=== PATIENT | male | born 1945 | race Caucasian/White ===

== ENCOUNTER 2017-11-14 07:19 | Emergency (ER) | payer MEDICARE ==
[~2017-11-14] VITALS: Ht 175.3 cm; Wt 80.0 kg
[~2017-11-14 07:19] MED LIST: AMLO10 PO; ASPI81 PO; ATEN-100 PO; FISH1000 PO; IBUP-232 PO; LORT5TAB PO; ROSU10 PO
[2017-11-14 07:30] VITALS: BP 189/90; PULSE 62; RESP 16; TEMP 97.5; O2SAT 97
[2017-11-14] MEDS ORDERED: OMEGCAP PO (07:42)
[2017-11-14] MEDS ORDERED: CLOP75TA PO (07:42)
[2017-11-14] MEDS ORDERED: CENTCHW4 CHEW (07:42)
[2017-11-14] MEDS ORDERED: LOSA100T PO (07:42)
[2017-11-14] MEDS ORDERED: ASPI-516 CHEW (07:42)
[2017-11-14] MEDS ORDERED: COQ-100C5 PO (07:42)
[2017-11-14] MEDS ORDERED: VITA150T PO (07:42)
[2017-11-14] MEDS ORDERED: VITA2000 PO (07:42)
[2017-11-14] MEDS ORDERED: ATOR40TA16 PO (07:42)
[2017-11-14] MEDS ORDERED: METO25TA3 PO (07:42)
--- NOTE | 2017-11-14 07:56 | PD ---
HPI Chief Complaint: Injury Time Seen by Provider: 07:46 Travel History International Travel<30 days: No Contact w/Intl Traveler<30days: No Traveled to known affect area: No History of Present Illness HPI 72-year-old male here for evaluation of left shoulder pain. The patient reports that he fell off of a 2 step ladder 2 days ago and landed onto his left shoulder. He did not start having pain until yesterday. Pain is over his left lateral shoulder and is moderate, worse with movements, worse when he extends his arm to 90. He denies head injury or LOC. No head neck or back pain. No pain in any other joint or extremity. No paresthesias. PFSH Past Medical History Cardiovascular Problems: Yes ([place], STENTS X 4) High Cholesterol: Yes Hypertension: Yes Past Surgical History Coronary Stent: Yes (2003) Social History Alcohol Use: Yes ([facility]) Tobacco Use: No Substance Use: No Allergies-Medications (Allergen,Severity, Reaction): Coded Allergies: ofloxacin (Unverified Allergy, Severe, UNKNOWN, 11/14/17) Reported Meds & Prescriptions Reported Meds & Active Scripts Active Reported Centrum (Multiple Vitamins W/ Minerals) 1 Chew 1 Tab CHEW DAILY Super B Complex (Vitamin B Complex Vit C No.4) 150 Mg Tablet 1 Tab PO DAILY [place]-3 Fish Oil/Vitamin (Fish Oil-Cholecalciferol) 1,000-1,000 Mg Cap 1 Cap PO DAILY Coq-10 Tr (Coenzyme Q10 (Ubidecarenone)) 100 Mg Cap 1 Tab PO DAILY Vitamin D3 (Cholecalciferol) 2,000 Unit Cap 2,000 Units PO DAILY Aspirin 81 Mg Chew 81 Mg CHEW DAILY Losartan (Losartan Potassium) 100 Mg Tab 100 Mg PO DAILY Clopidogrel (Clopidogrel Bisulfate) 75 Mg Tab 75 Mg PO DAILY Metoprolol Tartrate 25 Mg Tab 25 Mg PO BID Atorvastatin (Atorvastatin Calcium) 40 Mg Tab 40 Mg PO HS Review of Systems Except as stated in HPI: all other systems reviewed are Neg Physical Exam Narrative GENERAL: Well-developed, well-nourished, comfortable, no apparent distress. SKIN: Focused skin assessment warm/dry. No lacerations, abrasions, or ecchymosis. HEAD: Atraumatic. Normocephalic. EYES: Pupils equal and round. No scleral icterus. No injection or drainage. ENT: No nasal bleeding or discharge. Mucous membranes pink and moist. NECK: Trachea midline. No JVD. No midline several spine step-off or tenderness. CARDIOVASCULAR: Regular rate and rhythm. Bilateral distal radial pulses are brisk and equal. RESPIRATORY: No accessory muscle use. Clear to auscultation. Breath sounds equal bilaterally. GASTROINTESTINAL: Abdomen soft, non-tender, nondistended. Hepatic and splenic margins not palpable. MUSCULOSKELETAL: Left lateral shoulder with mild swelling with mild lateral tenderness without obvious deformity, with range of motion limited to 90 of extension. The rest of his joints and extremities are without deformity, without tenderness, with normal range of motion. Bilateral clavicles are nontender without step-off. No midline vertebral step-off or tenderness. NEUROLOGICAL: Awake and alert. No obvious cranial nerve deficits. Motor grossly within normal limits. Normal speech. PSYCHIATRIC: Appropriate mood and affect; insight and judgment normal. Data Data Last Documented VS Vital Signs Date Time Temp Pulse Resp B/P (MAP) Pulse Ox O2 Delivery O2 Flow Rate FiO2 11/14/17 07:30 97.5 62 16 189/90 (123) 97 Orders Orders Shoulder, Complete (>2vws) (11/14/17 ) [facility] Medical Decision Making Medical Screen Exam Complete: Yes Emergency Medical Condition: Yes Differential Diagnosis Left shoulder fracture versus contusion versus rotator cuff injury Narrative Course Left shoulder x-ray: CONCLUSION: No evidence of fracture or dislocation. Probable calcific tendinosis. Patient was made aware of x-ray findings and provided a copy of the report. He has been taking Tylenol for the pain and is requesting something stronger for night to help him with sleep. I'll give him a perception for tramadol. He is also encouraged to take ibuprofen. He will be given the name of the orthopedist director of education with him to follow up with this week for further evaluation. He was advised on when to return to the emergency department. He verbalizes understanding and agreement with plan. Diagnosis Primary Impression: Injury of left shoulder Qualified Codes: S49.92XA - Unspecified injury of left shoulder and upper arm , initial encounter Referrals: Rosalino Hodge MD 1 week Orthopedic Primary Care Physician 3 days Additional Instructions: Follow-up with a primary care physician this week. Follow-up with orthopedist Dr. Hodge or an orthopedist of your choice this week. Return to the emergency department for worsening symptoms or any other concerns. Scripts Tramadol (Tramadol) 50 Mg Tab 50 MG PO Q6H Y for PAIN, #15 TAB 0 Refills Prov: Cecilio Herrera MD 11/14/17 Disposition: 01 DISCHARGE HOME Condition: Stable Cecilio Herrera MD Nov 14, 2017 07:56
--- NOTE | 2017-11-14 09:10 | RADRPT ---
EXAM DATE/TIME: 11/14/2017 08:05 [facility] COMPARISON: No previous studies available for comparison. INDICATIONS : Left Shoulder pain MEDICAL HISTORY : None. SURGICAL HISTORY : None. ENCOUNTER: Initial ACUITY: 1 day PAIN SCORE: 9/10 LOCATION: Left upper extremity FINDINGS: Multiple views of the left shoulder demonstrate diffuse osteopenia. No evidence of fracture or dislo cation. Several oval amorphous densities adjacent to the greater tuberosity suggests calcific tendin osis. There is normal alignment of the humeral head and glenoid. CONCLUSION: No evidence of fracture or dislocation. Probable calcific tendinosis. Jacoby Horan MD on November 14, 2017 at 9:08 Board Certified Radiologist. This report was verified electronically.
[2017-11-14] MEDS ORDERED: TRAM50TA PO (09:19)
== END 2017-11-14 09:38 | disposition home or self-care (01) ==
LOC: PHED 07:19
DX: S49.92XA Unspecified injury of left shoulder and upper arm, initial encounter (principal); W11.XXXA Fall on and from ladder, initial encounter; E78.00 Pure hypercholesterolemia, unspecified; I10 Essential (primary) hypertension; I25.2 Old myocardial infarction; Z95.5 Presence of coronary angioplasty implant and graft
CPT/HCPCS: 73030; 99283

== ENCOUNTER 2018-07-26 17:58 | Inpatient (IN) ==
[~2018-07-26 17:58] MED LIST changes: -AMLO10 PO; -ASPI81 PO; -ATEN-100 PO; -FISH1000 PO; -IBUP-232 PO; +Iohexol 350 MG/ML 100 ML Vial (for Cath Lab) IVCONTRAST ONE; +Iohexol 350 MG/ML 50 ML Vial (for Cath Lab) IVCONTRAST ONE; -LORT5TAB PO; -ROSU10 PO
[2018-07-26] MEDS ORDERED: Nitroglycerin Drip Premix 50 MG/250 ML BOTTLE ONE (18:07)
[2018-07-26] MEDS ORDERED: Heparin 10,000 UNITS/10 ML Vial (for IV use) ONE (18:07)
[2018-07-26] MEDS ORDERED: Heparin 10,000 UNITS/10 ML Vial (for IV use) IV.PUSH STA (18:08)
[2018-07-26] MEDS ORDERED: Sod Chloride 0.9% Inj 1,000 ML IV.SIG SCH (18:15)
[2018-07-26] MEDS: Metoprolol Inj 5 MG/5 ML Vial IV.PUSH SCH ×2 (18:20→18:58)
--- NOTE | 2018-07-26 18:27 | ED ---
HPI General Stated Complaint: Chest Pain Time Seen by Provider: 07/26/18 18:08 History of Present Illness HPI narrative: This is a 72-year-old male with history of hypertension, hyperlipidemia, who presents today with 15 minutes of chest pain. Patient states he was working in his yard lifting heavy rock bags when he started experiencing substernal chest pain. He reports it is substernal radiating to his left upper shoulder blade. There is associated nausea and diaphoresis. Patient states the pain is a 7-8 out of 10 on the pain scale. Patient states he had a heart attack 5 years ago. He reports this is very similar to when he had a heart attack 5 years ago. He lives half the year here and half the year in [place]. He states that his bottle filler is in [place] and he has no bottle filler here. Related Data Allergies Allergy/AdvReac Type Severity Reaction Status Date / Time ofloxacin Allergy Severe UNKNOWN Unverified 11/14/17 07:32 Review of Systems ROS: all other systems reviewed are negative Constitutional Reports system reviewed and no additional complaints, except as docu Eyes Reports system reviewed and no additional complaints, except as docu ENT Reports system reviewed and no additional complaints, except as docu Cardiovascular Reports chest pain, Reports diaphoresis and Reports dyspnea Respiratory Denies chest congestion, Denies cough and Reports dyspnea Gastrointestinal Denies abdominal pain, Reports nausea and Denies vomiting Genitourinary Reports as per HPI Musculoskeletal Reports back pain (Pain rating from chest to his left upper back.), Denies numbness and Denies tingling Neurologic Reports system reviewed and no additional complaints, except as docu Exam Narrative Exam Narrative: GENERAL: Well-developed well-nourished male who appears pale clammy diaphoretic. SKIN: Focused skin assessment warm/dry. HEAD: Atraumatic. Normocephalic. EYES: No scleral icterus. No injection or drainage. ENT: No nasal bleeding or discharge. Mucous membranes pink and moist. NECK: Trachea midline. No JVD. CARDIOVASCULAR: Regular rate and rhythm. No murmur appreciated. RESPIRATORY: No accessory muscle use. Clear to auscultation. Breath sounds equal bilaterally. GASTROINTESTINAL: Abdomen soft, non-tender, nondistended. Hepatic and splenic margins not palpable. MUSCULOSKELETAL: No obvious deformities. No clubbing. No cyanosis. No edema. NEUROLOGICAL: Awake and alert. No obvious cranial nerve deficits. Motor grossly within normal limits. Normal speech. PSYCHIATRIC: Appropriate mood and affect; insight and judgment normal. Course Initial Documented Vital Signs Pulse Oximetry 98 07/26/18 18:12 Last Documented Vital Signs Pulse Oximetry 94 L 07/26/18 18:12 Medical Decision Making MDM Narrative Medical decision making narrative: 72-year-old male presents today with complaint of chest pain started 15 minutes prior to arrival. Patient has a inferior STEMI with ventricular bigeminy noted on 12-lead. He has been given aspirin to total his aspirin to 324 for the day. He has had 1 inch of nitroglycerin paste placed on his anterior chest wall, has been given 5000 units of heparin. He is also been written for Lopressor. He will be taken emergently via [facility] to the [facility]. Case was discussed with Dr. Rene Zepeda who will take him emergently to the [facility]. Medical Screen Exam Complete: Yes Emergency Medical Condition: Yes Differential Diagnosis Differential Diagnosis: ACS versus musculoskeletal pain versus peptic ulcer disease Discharge Plan Discharge Disposition Patient Disposition: 30 Still Patient Discharge Details Diagnosis: ST elevation myocardial infarction (STEMI), Hypertension, Dyslipidemia, Coronary artery disease Physicians Team ED Provider: Ernie Clark Primary Care Provider: NON STAFF,PROVIDER Attending Provider: Rene Zepeda Status ED Status: Admitted Patient
[2018-07-26 18:33] LABS: Baso # (Auto) 0.2 th/mm3 (0.0-0.2); Baso % (Auto) 1.5 % (0.0-2.0); Eos # (Auto) 0.3 th/mm3 (0.0-0.4); Eos % (Auto) 2.6 % (0.0-4.0); Hematocrit 45.7 % (39.0-51.0); Hemoglobin 15.4 gm/dL (13.0-17.0); Lymph # (Auto) 3.1 th/mm3 (1.0-4.8); Mean Corpuscular HGB Conc 33.8 % (32.0-36.0); Mean Corpuscular Hemoglobin 31.6 pg (27.0-34.0); Mean Corpuscular Volume 93.7 fL (80.0-100.0); Mean Platelet Volume 7.6 fL (7.0-11.0); Mono # (Auto) 1.7 th/mm3 (0.0-0.9); Mono % (Auto) 14.9 % (0.0-8.0); Neut # (Auto) 6.2 th/mm3 (1.8-7.7); Platelet Count 346 th/mm3 (150-450); Red Blood Count 4.88 mil/mm3 (4.50-5.90); Red Cell Distribution Width 13.5 % (11.6-17.2); White Blood Count 11.5 th/mm3 (4.0-11.0)
[2018-07-26 18:43] LABS: Chloride 107 meq/L (98-107); Potassium 3.6 meq/L (3.5-5.1); Sodium 141 meq/L (136-145)
[2018-07-26 18:45] LABS: Calcium 8.6 mg/dL (8.5-10.1)
[2018-07-26 18:46] LABS: Anion Gap 7 meq/L (5-15); Blood Urea Nitrogen 23 mg/dL (7-18); Glucose,Random 100 mg/dL (74-106); Magnesium 2.3 mg/dL (1.5-2.5)
[2018-07-26 18:47] LABS: Activated Partial Thrombo Time 25.1 sec (24.3-30.1); Prothrombin Time 10.4 sec (9.8-11.6)
[2018-07-26 18:49] LABS: Glomerular Filtration Rate 59 mL/min (>89)
[2018-07-26 18:52] LABS: Creatine Kinase 124 U/L (39-308)
--- NOTE | 2018-07-26 18:55 | XR ---
EXAM DATE: 07/26/2018 6:27 PM EDT AGE/SEX: 72 years / Male INDICATIONS: Stemi alert, chest pain. CLINICAL DATA: This is the patient's initial encounter. Patient reports that signs and symptoms have been present for 1 day and indicates a pain score of 0/10. MEDICAL/SURGICAL HISTORY: Non-responsive. Non-responsive. COMPARISON: None.. FINDINGS: A single AP view of the chest demonstrates the lungs to be symmetrically aerated without evidence of mass, infiltrate or effusion. The cardiomediastinal contours are unremarkable. Osseous structures a re intact. Atherosclerotic changes are present in the aorta. CONCLUSION: No acute cardiopulmonary disease. Electronically signed by: Octavio Shields MD 07/26/2018 6:53 PM EDT
[2018-07-26 19:05] LABS: Creatine Kinase MB 2.1 ng/mL (0.5-3.6)
[2018-07-26] MEDS ORDERED: fentaNYL Citrate Inj 100 MCG/2 ML Ampul ONE (19:06)
[2018-07-26] MEDS ORDERED: Tirofiban Inj 12,500 MCG/250 ML PLAST..BAG ONE (19:48)
[2018-07-26] MEDS ORDERED: Temazepam 15 MG Capsule PO PRN (20:27)
[2018-07-26] MEDS ORDERED: Misc Info for Pharmacy OTHER STA (20:27)
[2018-07-26] MEDS ORDERED: Lidocaine 1% Inj 50 ML Vial INFILTRATN PRN (20:28)
[2018-07-26] MEDS ORDERED: Lisinopril 5 MG Tablet PO SCH (20:30)
[2018-07-26] MEDS ORDERED: Labetalol HCl Inj 100 MG/20 ML Vial IV.PUSH PRN (20:30)
--- NOTE | 2018-07-26 20:36 | CATHPROC ---
[employer] HIS Report Study Information Study Number Admission Scheduled Start Study Start [id number] Jul 26 2018 5:58PM 07/26/2018 Jul 26 2018 6:52PM [place] [facility]iac Catheterization Admit Source Facility Department Transfer in from another acute care facility [facility] - Yoga Instructor Physician and Clinical Staff Initial Rene Crawford Residential Framing Carpenter Rafy Cortez RN Residential Framing Carpenter Concepcion Brice,HERNESTO Recorder Leanna Arreola ,RT(R) Scrub Lisa Trinidad,RT(R) Procedures Performed Procedure Location (Site) Vessel Name Angiogram LV LV Ventricle Coronary Angiograms LCA Left Coronary Coronary Angiograms RCA Right Coronary Drug Eluting Inflatio LAD Mid Left Coronary Drug Eluting Inflatio RCA Mid Right Coronary L Heart Cath PTCA LAD Mid Left Coronary PTCA RCA Mid Right Coronary Wire insertion Fem Art (right) Femoral Art Equipment Time Administrative Support Coordinator Description Size Mfg Part Number Used/Scraped [id number] 19:14 [employer] WIRE, ASAPlastio PROWATER 180CM 180CM Used *[id number] TRANSDUCER, TRUWAVE [id number] 18:55 DELANEY DAVID * Used W/STOCKCOCK *[id number] ART 3.5 SH GUIDE CATHETER [id number] 19:15 [employer] FR 6 Used RUNWAY *[id number] *[id number] [phone] *[id number] [phone] *[id number] [phone] *[id number] [id number] *[id number] [id number] *1873529 [phone] *[id number] 18:55 [employer] BLANKET,WARM AIR CCL * Used *[id number] 18:55 [employer] PACK, CCL CUSTOM * Used *[id number] 18:55 [employer] PACER PEN, SKIN DUAL W/ RULER * Used *[id number] BALLOON, 2.25 X 15MM [id number] 19:52 [employer] 15MM Used EUPHORA *[id number] 19:22 [employer] BALLOON, 2.5 X 15MM EUPHORA 15MM Used *[id number] BALLOON, 2.5 X 20MM NC [id number] 19:57 [employer] 20MM Used EUPHORA *[id number] 20:02 [employer] STENT, 2.5 30MM DIVYA 2.5 30MM Used *[id number] [id number] 19:43 [employer] STENT, 2.75 22MM DIVYA 2.75 22MM Used *6983770 [id number] 19:14 [employer] 30 KATERYNA INDEFLATOR Used *[id number] 18:55 [employer] SHEATH, FR6.5 PRELUDE 11CM FR 6.5 038ACT Used *[id number] [id number] 18:55 [employer] WIRE, 3MMJ .035 180CM 180CM Used *[id number] 18:55 NAMIC MANIFOLD, 4 PORT * Used *[id number] [id number] 20:06 NAM[employer] TUBING, HIGH PRESSURE 48" 48" Used *[id number] 18:55 [employer] OMNIPAQUE, 350 MG, 150ML 150ML [id number] Used Equipment Model, Serial, Lot Number and Expiration Data Description Model Number Serial Number Lot Number Expiration Date STENT, 2.5 30MM DIVYA [id number] 12-28-2019 STENT, 2.75 22MM DIVYA [id number] 01-15-2020 History: Allergies Allergy Reaction ofloxacin UNKNOWN History: Risk Factors Hypertension Dyslipidemia Previous ME Previous Heart Failure Yes Yes Yes No Prior PCI Prior PCIDate Yes 09/26/2003 History: Symptoms/Diagnosis Selection Items Chest pain History: Stress Tests Stress or Imaging Studies Performed No History: Other Current Smoker No Labs Hgb (g/dl) Hct (%) WBC (l/cumm) Platelets (thousands) 11.60-17.00 35.00-51.00 4.00-11.00 150.00-450.00 15.4 45.7 11.5 346 Glucose (mg/dl) BUN (mg/dl) Creatinine (mg/dl) BUN:Creatinine (1:x) 74.00-106.00 7.00-18.00 0.50-1.30 10.00-20.00 100 23 1.2 19.2 Na (meq/l) K (meq/l) 136.00-145.00 3.50-5.10 141 3.6 INR (PTT:PT) 0.90-1.10 1 Troponin I (ng/ml) CPK-MB (ng/ML) 0.02-0.05 0.50-3.60 0.02 Not Drawn Medication Medication Total Dose (Bolus/Oral) Medication Total Dosage/Unit 1% XYLOCAINE 15 mL AGGRASTAT BOLUS 37.5 meq/kg BRILLINTA 180 mg FENTANYL 50 mcg HEPARIN 4000 units NTG (IC) 450 mcg OXYGEN 4 l/min VERSED 3 mg Medications (Bolus/Oral) Medication Time Given Dosage/Unit Administered By Reason 1% XYLOCAINE 07/26/2018 7:07:16 PM 15 mL Rene Zepeda 15 mL 1% XYLOCAINE given in lab by Rene Zepeda via Subcutaneous. Ordered by Rene Zepeda. VERSED 07/26/2018 7:07:27 PM 2 mg Dana Rafy 2 mg VERSED given in lab by Rafy Cortez RN via Peripheral IV. Ordered by Rene Zepeda. FENTANYL 07/26/2018 7:08:48 PM 50 mcg Dana, Rafy 50 mcg FENTANYL given in lab by Rafy Cortez RN via Peripheral IV. Ordered by Rene Zepeda. OXYGEN 07/26/2018 7:11:20 PM 4 l/min Dana, Rafy 4 l/min OXYGEN given in lab by Rafy Cortez RN via Nasal. Ordered by Rene Zepeda. HEPARIN 07/26/2018 7:13:25 PM 2000 units Dana Rafy 2000 units HEPARIN given in lab by Rafy Cortez RN via Peripheral IV. Ordered by Rene Zepeda. NTG (IC) 07/26/2018 7:41:59 PM 100 mcg Rene Zepeda 100 mcg NTG (IC) given in lab by Rene Zepeda via Intra-coronary. Ordered by Rene Zepeda. HEPARIN 07/26/2018 7:48:07 PM 2000 units Rafy Cortez 2000 units HEPARIN given in lab by Rafy Cortez RN via Peripheral IV. Ordered by Rene Zepeda. VERSED 07/26/2018 7:50:47 PM 1 mg Concepcion Brice 1 mg VERSED given in lab by Concepcion Brice RN via Peripheral IV. Ordered by Rene Zepeda. NTG (IC) 07/26/2018 7:52:12 PM 150 mcg Rene Zepeda 150 mcg NTG (IC) given in lab by Rene Zepeda via Intra-coronary. Ordered by Rene Zepeda. AGGRASTAT BOLUS 07/26/2018 7:52:36 PM 37.5 meq/kg Rafy Cortez 37.5 meq/kg AGGRASTAT BOLUS given in lab by Rafy Cortez RN via Peripheral IV. Amount given = 2981.2 5 meq. Ordered by Rene Zepeda. NTG (IC) 07/26/2018 7:56:57 PM 200 mcg Rene Zepeda 200 mcg NTG (IC) given in lab by Rene Zepeda via Intra-coronary. Ordered by Rene Zepeda. BRILLINTA 07/26/2018 8:19:00 PM 180 mg Rafy Cortez 180 mg BRILLINTA given in lab by Rafy Cortez RN in Per mouth via Oral. Ordered by Rene Zepeda. Medication (Drip) Medication Time Given Dosage/Unit Concentration/Unit Diluent (ml) Solution AGGRASTAT DRIP 07/26/2018 7:57:50 PM 0.15 mcg/kg/min 12.5 mg 250 NaCl .9 0.15 mcg/kg/min AGGRASTAT DRIP given in lab by Rafy Cortez RN via Peripheral IV. Pump/Drip Flow = 1 4.31 ml/hr using NaCl .9 with a concentration of 12.5 mg in 250 ml. Ordered by Rene Zepeda. IV Solutions 07/26/2018 6:53:03 PM 50 mL (IV) 500 NaCl .9 Patient arrived on [facility] Solutions in Right Forearm via Peripheral IV. Pump/Drip Flow using NaCl .9. IV Solutions 07/26/2018 6:53:06 PM 50 mL (IV) NaCl .9 Patient arrived on [employer] Solutions via Peripheral IV. Pump/Drip Flow using NaCl .9. Initial Case Assessment Cardiovascular HR Rhythm NIBP Chest Pain 77 reg 204/114 0 Edema Present Skin color Skin None Normal Warm Dry Circulatory - Right Pulses Dorsalis Pedis Femoral 3 3 Scale (0,1,2,3,4,d) Circulatory - Left Pulses Dorsalis Pedis Femoral 3 3 Scale (0,1,2,3,4,d) Circulatory - Lower Extremities Color Lower Right Color Lower Left Normal Normal Neurological State Oriented to time-place- Alert Moves all extremities person Respiration - General Respiration Rate SpO2 (%) O2 (lpm) (B/min) 8 96 2 Initial Case Assessment Cardiovascular HR Rhythm NIBP Chest Pain 77 reg 204/114 0 Edema Present Skin color Skin None Normal Warm Dry Circulatory - Right Pulses Dorsalis Pedis Femoral 3 3 Scale (0,1,2,3,4,d) Circulatory - Left Pulses Dorsalis Pedis Femoral 3 3 Scale (0,1,2,3,4,d) Circulatory - Lower Extremities Color Lower Right Color Lower Left Normal Normal Neurological State Oriented to time-place- Alert Moves all extremities person Respiration - General Respiration Rate SpO2 (%) O2 (lpm) (B/min) 8 96 2 Chronological Log Time Study Chronological Log 18:50:27 Patient arrived via Bed. 18:50:30 Patient Name, D.O.B, / Armband Verified By R.N. 18:52:34 Consent signed by the physician and the patient and verified by the Yoga Instructor staff. 18:52:38 Pre-op and post- op instructions given; patient acknowledges understanding of instructions. 18:52:40 Presedation assessment performed by Yoga Instructor RN. 18:52:47 Skin Breakdown- 18:52:48 Patient Warmer Placed on the Table. 18:52:53 Disposable Defibrillator Pads Placed On Patient. 18:52:59 Red Prominences Protected 18:53:00 A # 20 IV was noted in the Forearm (right). Grade = 0 18:53:01 A # 18 IV was noted in the Antecubital (left). Grade = 0 18:53:03 Patient arrived on [employer] [facility] in Right Forearm via Peripheral IV. Pump/Drip Flow using Na Cl .9. 18:53:04 History and physical on the chart or being dictated. 18:53:06 Patient arrived on [employer] [facility] via Peripheral IV. Pump/Drip Flow using NaCl .9. Assessment: Initial Case, HR=77 BPM, Rhythm=reg, ORUM=131/114 mmhg, Chest Pain=0, Edema=None, Color=Normal, Skin = Warm, Dry Right Pulses: Bull Ped=3, Femoral=3 Left Pulses: Bull Ped=3, Femoral=3 18:53:07 Lower Right Extremities: Color=Normal Lower Left Extremities: Color=Normal Neurological: State=Alert, Ox3, BERNAL Respiration: Resp=8 B/min, SpO2=96 %, O2=2 lpm Vitals capture started with the following parameters, Patient=Adult, Interval=5 min, Initial Pr djiywi=610 mmHg, 18:54:40 Deflation Rate=5 mmHg, Cuff placed on Left Arm 18:56:27 HR=94 bpm, YTZZ=926/114 mmhg, SpO2=95.0 %, Resp=22 B/min 18:59:16 Reference ECG taken 19:00:28 HR=79 bpm, TEED=683/110 mmhg, SpO2=94.0 %, Resp=8 B/min 19:02:04 MD paged 19:02:07 MD responded 19:04:03 MD arrived. 19:05:25 HR=80 bpm, CMTX=789/110 mmhg, SpO2=95.0 %, Resp=0 B/min 19:05:39 Pressure channel 1 zeroed. Time Out. Correct patient, correct procedure, correct physician, labs, allergies, and equipment verified with rags laborer 19:05:52 team present. Fire risk assesment completed (see hard stop sheet for coding). Time Out Conc urred by MD and individual staff in procedure. 19:07:15 Case Start 19:07:16 15 mL 1% XYLOCAINE given in lab by Rene Zepeda via Subcutaneous. Ordered by Rene Zepeda. 19:07:27 2 mg VERSED given in lab by Rafy Cortez, RN via Peripheral IV. Ordered by Rene Zepeda. 19:08:09 Access site was Right Femoral Artery. 19:08:17 A SHEATH, FR6.5 PRELUDE 11CM FR 6.5 was advanced into the Fem Art (right) using the Percuta neous technique. A JL 4.0 INFINITI CATHETER FR 6 was advanced over a wire. OMNIPAQUE, 350 MG, 150ML 150ML was us ed for 19:08:39 injections. 19:08:48 50 mcg FENTANYL given in lab by Rafy Cortez, RN via Peripheral IV. Ordered by Rene Zepeda . 19:08:49 Activated Clotting Time Drawn 19:10:26 HR=86 bpm, BFYN=289/108 mmhg, SpO2=89.0 %, Resp=7 B/min Recorded Pressure: Ao, HR=86, Condition=Condition 1 19:10:29 (Aorta) Ao 194/98/139 19:10:40 The LCA was injected and visualized at various angles. OMNIPAQUE, 350 MG, 150ML 150ML used . 19:11:20 4 l/min OXYGEN given in lab by Rafy Cortez RN via Nasal. Ordered by Rene Zepeda. After removing the current catheter a 3D INFINITI CATHETER FR 6 was advanced over a WIRE, 3MM J .035 180CM 19:12:05 180CM. 19:12:55 ACT (Normal Range 90-180) = 209 19:13:15 The RCA was injected and visualized at various angles. OMNIPAQUE, 350 MG, 150ML 150ML used . 19:13:25 2000 units HEPARIN given in lab by Rafy Cortez RN via Peripheral IV. Ordered by Unruly Zepeda enn. 19:13:48 Catheter was removed A ART 3.5 SH GUIDE CATHETER RUNWAY FR 6 was advanced over a wire. OMNIPAQUE, 350 MG, 150ML 150M L was 19:14:18 used for injections. 19:15:25 HR=80 bpm, ENIR=680/101 mmhg, SpO2=89.0 %, Resp=0 B/min 19:17:10 A WIRE, ASAHI PROWATER 180CM 180CM was inserted via Fem Art (right). 19:18:27 Prowater Wire removed 19:18:43 Guide Catheter was removed A [facility] GUIDE CATHETER FR 6 was advanced over a wire. OMNIPAQUE, 350 MG, 150ML 150ML was used f or 19:19:22 injections. 19:20:24 HR=75 bpm, ZHBE=516/116 mmhg, SpO2=96.0 %, Resp=0 B/min 19:20:32 A WIRE, ASAHI PROWATER 180CM 180CM was inserted via Fem Art (right). 19:22:43 Interventional wire has crossed the lesion A BALLOON, 2.5 X 15MM EUPHORA 15MM was inserted over WIRE, ASAHI PROWATER 180CM 180CM via the F em Art 19:22:48 (right). A BALLOON, 2.5 X 15MM EUPHORA 15MM over a WIRE, ASAHI PROWATER 180CM 180CM in the RCA Mid was i nflated 19:23:46 using a 30 KATERYNA INDEFLATOR at 8 kateryna for 30 sec. A BALLOON, 2.5 X 15MM EUPHORA 15MM over a WIRE, ASAHI PROWATER 180CM 180CM in the RCA Mid was i nflated 19:24:36 using a 30 KATERYNA INDEFLATOR at 12 kateryna for 20 sec. 19:25:10 Balloon Removed. 19:25:31 HR=50 bpm, GMGX=015/65 mmhg, SpO2=96.0 %, Resp=0 B/min 19:27:33 Wire removed 19:27:38 Catheter was removed 19:27:39 A AL 1 GUIDE CATHETER FR 6 was advanced over a wire. OMNIPAQUE, 350 MG, 150ML 150ML was use d for injections. 19:30:16 HR=86 bpm, HSGP=182/94 mmhg, SpO2=96.0 %, Resp=19 B/min 19:31:22 Catheter was removed A ART 3.5 SH GUIDE CATHETER RUNWAY FR 6 was advanced over a wire. OMNIPAQUE, 350 MG, 150ML 150M L was 19:32:28 used for injections. 19:35:15 HR=77 bpm, LMXR=338/87 mmhg, SpO2=97.0 %, Resp=0 B/min After removing the current catheter a AR 2 GUIDE CATHETER FR 6 was advanced over a WIRE, ASAPlastio PROWATER 19:36:00 180CM 180CM. 19:39:53 A WIRE, ASAHI PROWATER 180CM 180CM was inserted via Fem Art (right). 19:40:57 HR=74 bpm, CJJY=114/90 mmhg, SpO2=93.0 %, Resp=0 B/min 19:41:59 100 mcg NTG (IC) given in lab by Rene Zepeda via Intra-coronary. Ordered by Rene Zepeda. 19:43:49 Activated Clotting Time Drawn A STENT, 2.75 22MM DIVYA 2.75 22MM was advanced through a AR 2 GUIDE CATHETER FR 6 over a WIRE, ASAHI 19:44:13 PROWATER 180CM 180CM. 19:45:24 HR=76 bpm, JPLG=825/88 mmhg, SpO2=95.0 %, Resp=0 B/min A STENT, 2.75 22MM DIVYA 2.75 22MM was deployed using a 30 KATERYNA INDEFLATOR at 16 atmospheres for 30 seconds 19:45:48 in the RCA Mid. 19:47:17 Delivery device removed 19:47:23 Wire removed 19:47:27 Catheter was removed 19:47:52 ACT (Normal Range 90-180) = 225 19:48:07 2000 units HEPARIN given in lab by Rafy Cortez RN via Peripheral IV. Ordered by Unruly Zepeda. A XB 3.5 GUIDE CATHETER FR 6 was advanced over a wire. OMNIPAQUE, 350 MG, 150ML 150ML was used for 19:48:22 injections. 19:50:20 HR=78 bpm, HDCP=309/95 mmhg, SpO2=93.0 %, Resp=3 B/min 19:50:27 A WIRE, ASAHI PROWATER 180CM 180CM was inserted via Fem Art (right). 19:50:47 1 mg VERSED given in lab by Concepcion Brice RN via Peripheral IV. Ordered by Rene Zepeda. 19:51:22 Interventional wire has crossed the lesion 19:52:12 150 mcg NTG (IC) given in lab by Rene Zepeda via Intra-coronary. Ordered by Rene Zepeda. A BALLOON, 2.25 X 15MM EUPHORA 15MM was inserted over WIRE, ASAHI PROWATER 180CM 180CM via the Fem Art 19:52:22 (right). 37.5 meq/kg AGGRASTAT BOLUS given in lab by Rafy Cortez RN via Peripheral IV. Amount given = 2981.25 meq. 19:52:36 Ordered by Rene Zepeda. A BALLOON, 2.25 X 15MM EUPHORA 15MM over a WIRE, ASAHI PROWATER 180CM 180CM in the LAD Mid was inflated 19:53:10 using a 30 KATERYNA INDEFLATOR at 8 kateryna for 15 sec. A BALLOON, 2.25 X 15MM EUPHORA 15MM over a WIRE, ASAHI PROWATER 180CM 180CM in the LAD Mid was inflated 19:53:42 using a 30 KATERYNA INDEFLATOR at 8 kateryna for 8 sec. A BALLOON, 2.25 X 15MM EUPHORA 15MM over a WIRE, ASAHI PROWATER 180CM 180CM in the LAD Mid was inflated 19:54:06 using a 30 KATERYNA INDEFLATOR at 12 kateryna for 22 sec. A BALLOON, 2.25 X 15MM EUPHORA 15MM over a WIRE, ASAHI PROWATER 180CM 180CM in the LAD Mid was inflated 19:54:32 using a 30 KATERYNA INDEFLATOR at 12 kateryna for 22 sec. A BALLOON, 2.25 X 15MM EUPHORA 15MM over a WIRE, ASAHI PROWATER 180CM 180CM in the LAD Mid was inflated 19:55:13 using a 30 KATERYNA INDEFLATOR at 12 kateryna for 22 sec. 19:55:22 HR=65 bpm, LJJR=988/100 mmhg, SpO2=94.0 %, Resp=20 B/min 19:55:51 Balloon Removed. 19:56:57 200 mcg NTG (IC) given in lab by Rene Zepeda via Intra-coronary. Ordered by Rene Zepeda. A BALLOON, 2.5 X 20MM NC EUPHORA 20MM was inserted over WIRE, ASAHI PROWATER 180CM 180CM via th e Fem 19:57:08 Art (right). 0.15 mcg/kg/min AGGRASTAT DRIP given in lab by Rafy Cortez, RN via Peripheral IV. Pump/Drip Fl ow = 14.31 ml/hr 19:57:50 using NaCl .9 with a concentration of 12.5 mg in 250 ml. Ordered by Rene Zepeda. A BALLOON, 2.5 X 20MM NC EUPHORA 20MM over a WIRE, ASAHI PROWATER 180CM 180CM in the LAD Mid wa s 19:58:07 inflated using a 30 KATERYNA INDEFLATOR at 17 kateryna for 30 sec. A BALLOON, 2.5 X 20MM NC EUPHORA 20MM over a WIRE, ASAHI PROWATER 180CM 180CM in the LAD Mid wa s 19:59:23 inflated using a 30 KATERYNA INDEFLATOR at 17 kateryna for 17 sec. A BALLOON, 2.5 X 20MM NC EUPHORA 20MM over a WIRE, ASAHI PROWATER 180CM 180CM in the LAD Mid wa s 19:59:54 inflated using a 30 KATERYNA INDEFLATOR at 18 kateryna for 30 sec. 20:00:23 HR=77 bpm, VQGR=211/106 mmhg, SpO2=94.0 %, Resp=11 B/min 20:01:19 Balloon Removed. A STENT, 2.5 30MM DIVYA 2.5 30MM was advanced through a XB 3.5 GUIDE CATHETER FR 6 over a WIRE, ASAHI 20:02:06 PROWATER 180CM 180CM. A STENT, 2.5 30MM DIVYA 2.5 30MM was deployed using a 30 KATERYNA INDEFLATOR at 13 atmospheres for 30 seconds in 20:03:21 the LAD Mid. 20:05:11 Delivery device removed 20:05:17 Wire removed 20:05:21 Catheter was removed 20:05:24 HR=81 bpm, TLNL=964/99 mmhg, SpO2=94.0 %, Resp=10 B/min A PIGTAIL STR INFINITI CATHETER FR 6 was advanced over a wire. OMNIPAQUE, 350 MG, 150ML 150ML w as used for 20:05:45 injections. Recorded Pressure: LV, HR=77, Condition=Condition 1 20:06:51 (Left Ventricle) LV 183/11/17 20:07:45 The LV was injected at 12 cc/sec for a total of 40. OMNIPAQUE, 350 MG, 150ML 150ML used. Recorded Pressure: LV, Ao, HR=82, Condition=Condition 1 20:08:47 (Left Ventricle) LV 180/11/17, (Aorta) Ao 170/82/121 20:09:03 Catheter was removed 20:09:06 Case End (Physician broke scrub) Assessment: Initial Case, HR=77 BPM, Rhythm=reg, SHBC=491/114 mmhg, Chest Pain=0, Edema=None, Color=Normal, Skin = Warm, Dry Right Pulses: Bull Ped=3, Femoral=3 Left Pulses: Bull Ped=3, Femoral=3 20:09:24 Lower Right Extremities: Color=Normal Lower Left Extremities: Color=Normal Neurological: State=Alert, Ox3, BERNAL Respiration: Resp=8 B/min, SpO2=96 %, O2=2 lpm 20:10:04 Catheter(s) removed without difficulty 20:10:23 Sterile dressing applied to site 20:10:24 No case complications noted. 20:10:31 HR=82 bpm, RVUH=650/75 mmhg, SpO2=95.0 %, Resp=0 B/min 20:10:39 Cine recording checked. 20:10:40 Bedside Report will be given. 20:10:41 Implantable Device card placed in patient's chart. 20:10:42 A Left Heart Cath was performed. 20:16:15 HR=75 bpm, QYWO=458/94 mmhg, SpO2=96.0 %, Resp=10 B/min 20:19:00 180 mg BRILLINTA given in lab by Rafy Cortez, RN in Per mouth via Oral. Ordered by Rene Zepeda. 20:20:25 HR=81 bpm, GUCS=607/94 mmhg, SpO2=97.0 %, Resp=10 B/min 20:23:19 Vitals capture stopped. 20:26:09 Patient moved to stretcher End Study - Contrast Media Used In Study Contrast Total Opened (mL) Total Used (mL) Total Wasted (mL) Omnipaque 230 230 0 End Study - Maximum Contrast Load Max Contrast Load (mL) 331.3 End Study - Radiation Exposure Fluoro Time (minutes) 24.0 End Study - Patient Disposition Complications Transferred To Interventional Outcome No Critical Care Bed successful
[2018-07-26] MEDS ORDERED: Tirofiban Inj 12,500 MCG/250 ML PLAST..BAG IV.CONT SCH (21:00)
--- NOTE | 2018-07-26 21:07 | MA ---
cc: Rene Zepeda MD DATE: 07/26/2018 PROCEDURES: Emergency left heart catheterization, selective coronary angiography, left ventriculography, somewhat difficult angioplasty and stent of the mid right coronary artery, angioplasty and stent of the mid LAD. PROCEDURE NOTES: The patient was brought to the cardiac catheterization laboratory in a fasting state after having signed informed consent. The right groin was prepped and draped as per policy and anesthetized with 1% lidocaine. Arterial access was obtained via the right femoral artery and a 6-Barbadian sheath placed. Coronary arteriography was performed using 6-Barbadian Arturo left 4.0 and right progressive catheters. Left ventriculography was done using a standard 6-Barbadian pigtail. Percutaneous coronary intervention was done as described below. There were no apparent, immediate complications. HEMODYNAMIC DATA: Left ventricle 180 with an end diastolic pressure of 15 aorta 170/82 with a mean of 121. There was no definite significant transvalvular aortic gradient on pullback of the pigtail catheter. CORONARY ARTERIOGRAPHY: The left main is normal. The left anterior descending demonstrates possibly 2 overlapping stents in its proximal to mid portion. There is minimal diffuse restenosis of the stents resulting in up to 10% restenosis. In the mid LAD, there is diffuse disease, which likely results in up to 80% stenosis. The distal LAD has minimal luminal irregularities. There is a small diagonal, which has a proximal stent. The stent has diffuse mild to moderate restenosis resulting in up to 30% stenosis. The ostium of this diagonal has 80% disease. The left circumflex is a small vessel giving rise to a large obtuse marginal. A stent is evident in the proximal left circumflex extending into the proximal obtuse marginal. There is minimal to mild diffuse restenosis of this stent. The obtuse marginal has 30% stenosis in its proximal portion and 30% stenosis in its midsection. The right coronary artery is subtotally occluded in its mid portion. There is NELLY grade 2 flow in the vessel. LEFT VENTRICULOGRAPHY: Contrast injection of the left ventricle reveals moderate basal inferior hypokinesis. Ejection fraction is estimated at 55%. PERCUTANEOUS CORONARY INTERVENTION DESCRIPTION PROCEDURE: Adequate heparin was given during the procedure to achieve an ACT greater than 250 seconds. Aggrastat was given as per protocol. Initially, a 6-Barbadian ART 3.5 guiding catheter was used. It appeared to have adequate backup support. However, with advancement of the wire, it was clear this guiding catheter did not have adequate backup support. It was exchanged for a hockey stick guide with side holes. Using a 0.014 Prowater guidewire, the subtotal occlusion was crossed without difficulty and the tip of the wire positioned slightly more distally. Advancing the guidewire then resulted in the guiding catheter backing out slightly, and it was difficult getting the catheter to re-seat. As the wire had already crossed, we decided to proceed with angioplasty. This was done using a 2.5 mm Euphora balloon catheter. At this point, in an attempt to re-seat the guiding catheter, wire access was lost. We tried a number of different guiding catheters without adequate successful coaxial re-engagement of the right coronary artery. We finally used an Amplatz right 2.0 and the Prowater wire was advanced distally without difficulty. Stenting was then done using a 2.75 x 22 mm Resolute [place] stent. Final angiography shows overall good results with reduction of the subtotal occlusion to 0% residual with no definite evidence for dissection or distal embolization. The guiding catheter was exchanged for a 6-Barbadian XB 3.5. The same Prowater wire was used to cross the diffuse mid LAD disease. Pre-dilation was initially done using a 2.25 mm Euphora balloon catheter. A small region of moderate calcification was noted. The balloon was exchanged for a 2.5 mm noncompliant Euphora balloon catheter for further pre-dilation. Stenting was then done using a 2.5 x 30 mm Resolute [place] stent, which was deployed at 13 atmospheres. Final angiography shows overall good results with reduction of the initial diffuse disease to roughly 0% residual with no definite evidence for dissection or distal embolization. There were no apparent immediate complications. The patient tolerated the procedure well. CONCLUSIONS: 1. Severe 2-vessel coronary artery disease. 2. Right dominant system. 3. Moderate basal inferior hypokinesis with overall preserved left ventricular systolic function. Ejection fraction is estimated at 55%. 4. Status post angioplasty and stent of the mid right coronary artery and angioplasty and stent of the mid left anterior descending. DISCUSSION: There is residual severe disease at the ostium of the diagonal. It will be treated medically. This vessel is small. MD DAVID Martinez/troy/ashley , 08:23 PM , 08:34 PM [email or web address]
[2018-07-26] MEDS: Metoprolol Tartrate 25 MG Tablet PO SCH (21:21)
--- NOTE | 2018-07-26 22:00 | MB ---
cc: Rene Zepeda MD DATE: 07/26/2018 REASON FOR CONSULTATION: Acute ST elevation myocardial infarction. HISTORY OF PRESENT ILLNESS: The patient is a 72-year-old white male with a history of hypertension, hyperlipidemia, coronary artery disease, status post placement of 4 coronary stents, initially 2003, the last one possibly 5 years ago up in [place], who was in his usual state of health up until 15 minutes prior to admission when he began to experience severe substernal chest discomfort described as "pressure" associated with nausea, diaphoresis and mild shortness of breath. He came to the emergency department in [place] where EKG showed evidence for acute inferior ST elevation myocardial infarction. The patient on arrival continues to complain of 4-5/10 intensity chest discomfort, although improved from presentation. He denies dizziness, syncope, near syncope, palpitations, pedal edema, paroxysmal nocturnal dyspnea. He states the chest discomfort is very similar to his previous angina. PAST MEDICAL HISTORY: As above. No other details currently available. CARDIAC MEDICATIONS AT HOME: 1. Atorvastatin 40 mg at bedtime. 2. Metoprolol tartrate 25 mg b.i.d. 3. Clopidogrel 75 mg daily. 4. Losartan 100 mg daily. 5. Aspirin 81 mg daily. ALLERGIES: OFLOXACIN. FAMILY HISTORY: Noncontributory. SOCIAL HISTORY: The patient has never smoked cigarettes. He denies alcohol abuse. REVIEW OF SYSTEMS: As in the history of present illness, otherwise negative or noncontributory. He also denies headache, abdominal pain, melena, dyspepsia, bright red blood per rectum. PHYSICAL EXAMINATION: VITAL SIGNS: Blood pressure 200/100 with a pulse of 70, respirations 18. GENERAL: He is a well-developed, well-nourished white male, in no acute distress. NECK: Jugular venous pressure is normal. Carotid pulses are 2+ bilaterally and without bruits. CHEST: Reveals clear lungs goss. CARDIAC: He has a regular rhythm and rate without S3, S4, or murmur. ABDOMEN: He had a soft, nontender abdomen. Bowel sounds are present. There is no definite hepatosplenomegaly. EXTREMITIES: Reveals no clubbing, cyanosis or edema. Peripheral pulses are normal throughout. LABORATORY DATA: Includes normal CBC, normal basic metabolic profile, troponin less than 0.02. EKG shows sinus rhythm, inferior ST elevation with reciprocal changes consistent with acute injury pattern. IMPRESSION: Acute inferior ST elevation myocardial infarction in a 72-year-old white male with a history of known coronary artery disease, status post a number of stents in the past 15 years, history of hypertension, hyperlipidemia. At this time, he continues to have ongoing chest pain as well as ST elevation on the monitor. Therefore, he has been recommended emergency cardiac catheterization with probable percutaneous coronary intervention, the risks of which have been explained to him including, but not limited to , myocardial infarction, stroke, arrhythmia, bleeding, infection, and renal failure. He agrees to proceed. PLAN: 1. Emergency cardiac catheterization. 2. Check a fasting lipid profile and continue statin therapy. 3. Continue beta abhijit and angiotensin receptor abhijit therapy. MD DAVID Martinez/carl , 08:47 PM , 08:54 PM H[facility]ACE
[2018-07-27] MEDS: Sod Chloride 0.9% Inj 1,000 ML IV.CONT SCH ×2 (00:51→09:21)
[2018-07-27 05:51] LABS: Baso % (Auto) 0.2 % (0.0-2.0); Eos % (Auto) 0.3 % (0.0-4.0); Hematocrit 38.7 % (39.0-51.0); Hemoglobin 13.6 gm/dL (13.0-17.0); Lymph # (Auto) 0.9 th/mm3 (1.0-4.8); Lymph % (Auto) 8.7 % (9.0-44.0); Mean Corpuscular HGB Conc 35.2 % (32.0-36.0); Mean Corpuscular Hemoglobin 32.5 pg (27.0-34.0); Mean Corpuscular Volume 92.2 fL (80.0-100.0); Mean Platelet Volume 7.3 fL (7.0-11.0); Mono # (Auto) 1.2 th/mm3 (0.0-0.9); Mono % (Auto) 11.2 % (0.0-8.0); Neut # (Auto) 8.5 th/mm3 (1.8-7.7); Neut % (Auto) 79.6 % (16.0-70.0); Platelet Count 232 th/mm3 (150-450); Red Cell Distribution Width 13.8 % (11.6-17.2); White Blood Count 10.7 th/mm3 (4.0-11.0)
[2018-07-27 06:14] LABS: Calcium 8.2 mg/dL (8.5-10.1); Carbon Dioxide 27.6 meq/L (21.0-32.0); Potassium 4.1 meq/L (3.5-5.1)
[2018-07-27 06:29] LABS: Chol/HDL Ratio 2.41 Ratio
[2018-07-27 06:46] LABS: Creatine Kinase MB 114.1 ng/mL (0.5-3.6)
[2018-07-27 07:13] LABS: CKMB Percent 10.5 % (0.0-4.0)
--- NOTE | 2018-07-27 08:43 | P.PNCA ---
Subjective Interval history: No CP, groin pain, dyspnea, dizziness, palpitations. Medications and Allergies Active Medications: Active Medications Aspirin (Aspirin Chew) 81 mg PO DAILY [facility] Atorvastatin Calcium (Lipitor) 80 mg PO HS [facility] Last Admin: 07/26/18 21:21 Dose: 80 mg Clonidine HCl (Catapres) 0.1 mg PO Q6H PRN PRN Reason: SBP>160, DBP>90 Last Admin: 07/27/18 04:43 Dose: 0.1 mg Sodium Chloride (Ns Inj) 1,000 mls @ 30 mls/hr IV.SIG .Q24H [facility] Stop: 07/27/18 18:14 Last Admin: 07/26/18 18:58 Dose: 30 mls/hr Tirofiban/Sodium Chloride (Aggrastat Inj) 12,500 mcg in 250 mls @ 0 mls/hr IV.CONT .Q0M [facility]; Protocol Stop: 07/27/18 14:00 Labetalol HCl (Trandate Inj) 10 mg IV.PUSH Q6H PRN PRN Reason: SYS BP GREATER THAN 160 MMHG Lidocaine HCl (Xylocaine 1% Inj (50 Ml)) 10 ml INFILTRATN UNSCH PRN PRN Reason: SHEATH REMOVAL Stop: 07/27/18 20:27 Lorazepam (Ativan Inj) 0.5 mg IV.PUSH UNSCH PRN PRN Reason: ANXIETY Stop: 07/27/18 20:27 Losartan Potassium (Cozaar) 100 mg PO DAILY [facility] Last Admin: 07/26/18 21:20 Dose: 100 mg Metoprolol Tartrate (Lopressor) 25 mg PO BID [facility] Last Admin: 07/26/18 21:21 Dose: 25 mg Sodium Chloride (Ns Flush) 2 ml IV.FLUSH BID [facility] Last Admin: 07/26/18 21:31 Dose: Not Given Sodium Chloride (Ns Flush) 2 ml IV.FLUSH PRN PRN PRN Reason: FLUSH AFTER USING IV ACCESS Temazepam (Restoril) 15 mg PO HS PRN PRN Reason: SLEEP Ticagrelor (Brilinta) 90 mg PO BID [facility] Last Admin: 07/27/18 06:19 Dose: Not Given Allergies Allergy/AdvReac Type Severity Reaction Status Date / Time ofloxacin Allergy Severe UNKNOWN Verified 07/26/18 18:33 Home Medications Medication Instructions Recorded Confirmed Type Unable to Obtain Home Meds 07/26/18 07/26/18 History Physical Exam Vital signs: Vital Signs 07/26/18 18:02 07/26/18 18:10 07/26/18 18:12 Temperature 97.5 F L Pulse Rate 45 L 45 L Respiratory Rate 16 Blood Pressure 202/105 H Pulse Oximetry 96 94 L 07/26/18 18:25 07/26/18 20:00 07/26/18 21:00 Temperature Pulse Rate 45 L 78 Respiratory Rate 16 Blood Pressure 224/114 H Pulse Oximetry 98 95 07/26/18 22:00 07/26/18 23:00 07/27/18 00:00 Temperature 97.8 F 98.3 F Pulse Rate 63 67 63 Respiratory Rate 18 18 Blood Pressure 155/96 H 149/83 H Pulse Oximetry 98 97 07/27/18 01:00 07/27/18 02:00 07/27/18 03:00 Temperature Pulse Rate 63 71 61 Respiratory Rate Blood Pressure Pulse Oximetry 07/27/18 04:00 07/27/18 04:43 07/27/18 05:00 Temperature 98.5 F Pulse Rate 76 74 Respiratory Rate 18 Blood Pressure 160/94 H 165/90 H Pulse Oximetry 97 07/27/18 06:00 07/27/18 07:00 07/27/18 08:00 Temperature 98.4 F Pulse Rate 74 66 73 Respiratory Rate 16 Blood Pressure 155/94 H Pulse Oximetry 94 L Intake & Output 07/26/18 07/27/18 07/27/18 18:59 06:59 18:59 Intake Total 720 / 720 Output Total 850 / 850 Balance -130 / -130 Weight 79.5 kg 81 kg Intake: Oral 720 / 720 Output: Urine 850 / 850 Other: Date of Last Bowel Movement 07/27/18 - Constitutional no acute distress - Routine Neck Exam Absent: JVD - Routine Respiratory Exam Present: CTA bilaterally - Routine Cardiovascular Exam Present: RRR, S1, S2. Absent: murmur, gallop - Routine Abdominal Exam Present: soft, normoactive bowel sounds. Absent: tenderness, organomegaly - Routine Extremities Exam Absent: cyanosis, clubbing, edema Comments: Right groin stable, no hematoma or tenderness. Results 07/27/18 04:46 07/27/18 04:46 Cardiac Enzymes 07/26/18 07/26/18 07/27/18 Range/Units 18:15 18:15 04:46 CK-MB (CK-2) 2.1 114.1 H (0.5-3.6) ng/mL Troponin I Less than 0.02 L (0.02-0.05) ng/mL B-Natriuretic Peptide 87 (0-100) pg/mL Coagulation 07/26/18 07/26/18 Range/Units 18:15 18:15 PT 10.4 (9.8-11.6) sec APTT 25.1 (24.3-30.1) sec B-Natriuretic Peptide 87 (0-100) pg/mL Lipids 07/27/18 Range/Units 04:46 Triglycerides 75 (42-150) mg/dL Cholesterol 87 L (120-200) mg/dL HDL Cholesterol 36.0 L (40.0-60.0) mg/dL Cholesterol/HDL Ratio 2.41 Ratio CBC 07/26/18 07/27/18 Range/Units 18:15 04:46 WBC 11.5 H 10.7 (4.0-11.0) th/mm3 RBC 4.88 4.20 L (4.50-5.90) mil/mm3 Hgb 15.4 13.6 (13.0-17.0) gm/dL Hct 45.7 38.7 L (39.0-51.0) % Plt Count 346 232 D (150-450) th/mm3 Neut # (Auto) 6.2 8.5 H (1.8-7.7) th/mm3 Lymph # (Auto) 3.1 0.9 L (1.0-4.8) th/mm3 Kerr # (Auto) 1.7 H 1.2 H (0.0-0.9) th/mm3 Eos # (Auto) 0.3 0.0 (0.0-0.4) th/mm3 Baso # (Auto) 0.2 0.0 (0.0-0.2) th/mm3 Comprehensive Metabolic Panel 07/26/18 07/27/18 Range/Units 18:15 04:46 Sodium 141 141 (136-145) meq/L Potassium 3.6 4.1 (3.5-5.1) meq/L Chloride 107 106 (98-107) meq/L Carbon Dioxide 27.0 27.6 (21.0-32.0) meq/L BUN 23 H 20 H (7-18) mg/dL Creatinine 1.20 0.95 (0.60-1.30) mg/dL Calcium 8.6 8.2 L (8.5-10.1) mg/dL Intake and Output 07/26/18 07/27/18 07/27/18 22:59 06:59 14:59 Intake Total 720 / 720 Output Total 850 / 850 Balance -130 / -130 Intake: Oral 720 / 720 Output: Urine 850 / 850 Other: Date of Last Bowel Movement 07/27/18 Weight 79.5 kg 81 kg - Imaging and Cardiology Imaging: Impressions Chest X-Ray 07/26/18 18:08 CONCLUSION: No acute cardiopulmonary disease. Assessment and Plan - Assessment (1) ST elevation myocardial infarction (STEMI) Code(s): I21.3 - ST elevation (STEMI) myocardial infarction of unspecified site Status: Acute Plan: Stable overnight s/p inferior STEMI, PCI's of RCA and LAD. Groin stable. Recommend increase ambulation, possible discharge tomorrow. Continue beta abhijit, ARB as taken at home. Continue Brilinta and aspirin. (2) Ventricular tachycardia Code(s): I47.2 - Ventricular tachycardia Status: Acute Plan: Likely was reperfusion arrhythmia. Continue to monitor. Continue beta abhijit. LV function normal. (3) Hypertension Code(s): I10 - Essential (primary) hypertension Status: Chronic Plan: Patient reports usually normal BP's at home. Hypertensive here. Recommend add amlodipine. (4) Dyslipidemia Code(s): E78.5 - Hyperlipidemia, unspecified Status: Chronic Plan: Lipid profile good. Patient reports good lipid profile 3 weeks ago on 40 mg atorvastatin qd. Recommend drop back to 40 mg qd. - Plan Code Status: full code Discussed Condition With: patient (1) ST elevation myocardial infarction (STEMI) Qualifiers: Involved coronary artery: right coronary artery Qualified Code(s): I21.11 - ST elevation (STEMI) myocardial infarction involving right coronary artery (3) Hypertension Qualifiers: Hypertension type: essential hypertension Qualified Code(s): I10 - Essential (primary) hypertension
[2018-07-27] MEDS: Metoprolol Tartrate 25 MG Tablet PO SCH ×2 (09:20→21:10)
[2018-07-27] MEDS: amLODIPine 10 MG Tablet PO SCH (09:24)
--- NOTE | 2018-07-27 10:38 | P.CON ---
History of Present Illness Reason for Consult: Medical management Primary Care Provider: PROVIDER NON STAFF Chief Complaint: Substernal chest pain History of Present Illness: 72-year-old man for past medical history of hypertension, hyperlipidemia and prior history of IN with stent placement was brought to the ED on July 26, 2018 secondary to an acute onset of substernal chest pain. Patient was found to have ST elevation IN, and cardiology was consulted. He underwent emergent cardiac catheterization with PCI of RCA and LAD. During my exam, patient denies any chest pain, shortness of breath or heart palpitation Review of Systems All other systems reviewed negative except as stated [facility] - History History Provided By: Patient - Family History Family History: Family History (Last Updated 07/27/18 @ 10:37 by Alejandro Gómez MD) Other Hypertension Myocardial infarction - Tobacco History Second Hand Smoke Exposure: No Tobacco Use In Past 30 Days: No Smoking Status: Former smoker Tobacco Type: Cigarettes - Alcohol History How Often Do You Have a Drink Containing Alcohol: 2 to 3 times a week - Substance Use History Substance History: No History of Abuse - Travel History Recent Travel in the [place] Within the Last 8 Weeks: No Recent Travel Out of the Country Within the Last 8 Weeks: No - Immunization History Tetanus Immunization: <5 Years Hx Influenza Vaccine This Season: Yes Medications and Allergies Active Medications: Active Medications Amlodipine Besylate (Norvasc) 10 mg PO DAILY [facility] Last Admin: 07/27/18 09:24 Dose: 10 mg Aspirin (Aspirin Chew) 81 mg PO DAILY [facility] Last Admin: 07/27/18 09:20 Dose: 81 mg Atorvastatin Calcium (Lipitor) 40 mg PO HS [facility] Clonidine HCl (Catapres) 0.1 mg PO Q6H PRN PRN Reason: SBP>160, DBP>90 Last Admin: 07/27/18 04:43 Dose: 0.1 mg Sodium Chloride (Ns Inj) 1,000 mls @ 30 mls/hr IV.SIG .Q24H [facility] Stop: 07/27/18 18:14 Last Admin: 07/26/18 18:58 Dose: 30 mls/hr Tirofiban/Sodium Chloride (Aggrastat Inj) 12,500 mcg in 250 mls @ 0 mls/hr IV.CONT .Q0M [facility]; Protocol Stop: 07/27/18 14:00 Last Admin: 07/27/18 09:56 Dose: 0.14 mcg/kg/min, 14.3 mls/hr Labetalol HCl (Trandate Inj) 10 mg IV.PUSH Q6H PRN PRN Reason: SYS BP GREATER THAN 160 MMHG Lidocaine HCl (Xylocaine 1% Inj (50 Ml)) 10 ml INFILTRATN UNSCH PRN PRN Reason: SHEATH REMOVAL Stop: 07/27/18 20:27 Lorazepam (Ativan Inj) 0.5 mg IV.PUSH UNSCH PRN PRN Reason: ANXIETY Stop: 07/27/18 20:27 Losartan Potassium (Cozaar) 100 mg PO DAILY [facility] Last Admin: 07/27/18 09:20 Dose: 100 mg Metoprolol Tartrate (Lopressor) 25 mg PO BID [facility] Last Admin: 07/27/18 09:20 Dose: 25 mg Sodium Chloride (Ns Flush) 2 ml IV.FLUSH BID [facility] Last Admin: 07/27/18 09:24 Dose: 2 ml Sodium Chloride (Ns Flush) 2 ml IV.FLUSH PRN PRN PRN Reason: FLUSH AFTER USING IV ACCESS Temazepam (Restoril) 15 mg PO HS PRN PRN Reason: SLEEP Ticagrelor (Brilinta) 90 mg PO BID [facility] Last Admin: 07/27/18 09:20 Dose: 90 mg Allergies Allergy/AdvReac Type Severity Reaction Status Date / Time ofloxacin Allergy Severe UNKNOWN Verified 07/26/18 18:33 Home Medications Medication Instructions Recorded Confirmed Type Unable to Obtain Home Meds 07/26/18 07/26/18 History Physical Exam Vital signs: Vital Signs 07/26/18 18:02 07/26/18 18:10 07/26/18 18:12 Temperature 97.5 F L Pulse Rate 45 L 45 L Respiratory Rate 16 Blood Pressure 202/105 H Pulse Oximetry 96 94 L 07/26/18 18:25 07/26/18 20:00 07/26/18 21:00 Temperature Pulse Rate 45 L 78 Respiratory Rate 16 Blood Pressure 224/114 H Pulse Oximetry 98 95 07/26/18 22:00 07/26/18 23:00 07/27/18 00:00 Temperature 97.8 F 98.3 F Pulse Rate 63 67 63 Respiratory Rate 18 18 Blood Pressure 155/96 H 149/83 H Pulse Oximetry 98 97 07/27/18 01:00 07/27/18 02:00 07/27/18 03:00 Temperature Pulse Rate 63 71 61 Respiratory Rate Blood Pressure Pulse Oximetry 07/27/18 04:00 07/27/18 04:43 07/27/18 05:00 Temperature 98.5 F Pulse Rate 76 74 Respiratory Rate 18 Blood Pressure 160/94 H 165/90 H Pulse Oximetry 97 07/27/18 06:00 07/27/18 07:00 07/27/18 08:00 Temperature 98.4 F Pulse Rate 74 66 73 Respiratory Rate 16 Blood Pressure 155/94 H Pulse Oximetry 94 L 07/27/18 09:00 07/27/18 10:00 Temperature Pulse Rate 70 98 H Respiratory Rate Blood Pressure Pulse Oximetry Intake & Output 07/26/18 07/27/18 07/27/18 18:59 06:59 18:59 Intake Total 720 / 720 Output Total 850 / 850 Balance -130 / -130 Weight 79.5 kg 81 kg Intake: Oral 720 / 720 Output: Urine 850 / 850 Other: Date of Last Bowel Movement 07/27/18 Narrative: GENERAL: NAD SKIN: Warm and dry. HEAD: Atraumatic. Normocephalic. EYES: Pupils equal and round. No scleral icterus. No injection or drainage. ENT: No nasal bleeding or discharge. Mucous membranes pink and moist. NECK: Trachea midline. No JVD. CARDIOVASCULAR: Regular rate and rhythm. RESPIRATORY: No accessory muscle use. Clear to auscultation. Breath sounds equal bilaterally. GASTROINTESTINAL: Abdomen soft, non-tender, nondistended. Hepatic and splenic margins not palpable. MUSCULOSKELETAL: Extremities without clubbing, cyanosis, or edema. No obvious deformities. NEUROLOGICAL: Awake and alert. No obvious cranial nerve deficits. Motor grossly within normal limits. Five out of 5 muscle strength in the arms and legs. Normal speech. PSYCHIATRIC: Appropriate mood and affect; insight and judgment normal. Assessment and Plan - Plan 72-year-old man with ST elevation IN Status post emergent left heart catheterization with PCI of RCA and LAD Continue beta-abhijit, ARB, Brilinta and aspirin as well as statin Management per cardiology Check 2D echo Hypertension Currently on beta-abhijit,ARB Hyperlipidemia On Lipitor
[2018-07-27] MEDS ORDERED: Acetaminophen 325 MG Tablet PO PRN (10:58)
--- NOTE | 2018-07-27 14:33 | ECG ---
Date Performed: 07/26/2018 Time Performed: 20:50:14 PTAGE: 72 years EKG: Sinus rhythm . ST junctional depression is nonspecific Since the previous tracing, no significant change noted Bor derline ECG PREVIOUS TRACING : 07/26/2018 18.02 DOCTOR: Elliott Mariscal Interpretating Date/Time 07/27/2018 14:28:15
--- NOTE | 2018-07-27 15:33 | ECG ---
Date Performed: 07/26/2018 Time Performed: 18:02:11 PTAGE: 72 years EKG: Sinus rhythm WITH FREQUENT VENTRICULAR PREMATURE COMPLEXES IN A BIGEMINAL PATTERN ST ELEVATION, CONSIDER INFERIOR INJURY ACUTE VA NO PREVIOUS TRACING DOCTOR: Elliott Mariscal Interpretating Date/Time 07/27/2018 15:32:40
--- NOTE | 2018-07-27 18:16 | ECHRPT ---
Indication: CHEST PAIN CONCLUSIONS The left ventricular systolic function is normal with an estimated ejection fraction in the range of 55-60%. [id number] mitral valve regurgitation. Aortic valve sclerosis is present. There is trace tricuspid valve regurgitation. Mild pulmonary valve regurgitation. BP: / HR: Rhythm: Sinus Technical Quality:Fair FINDINGS LEFT VENTRICLE The left ventricular systolic function is normal with an estimated ejection fraction in the range of 55-60%. Normal left ventricular size. RIGHT VENTRICLE Normal right ventricular size and systolic function. LEFT ATRIUM The left atrial size is normal. RIGHT ATRIUM The right atrial size is normal. ATRIAL SEPTUM Normal atrial septal thickness without atrial level shunting by limited color doppler interrogation. AORTA The aortic root and proximal ascending aorta are normal in size on limited imaging. MITRAL VALVE Mild thickening of the mitral valve leaflets. [id number] mitral valve regurgitation. AORTIC VALVE Trileaflet aortic valve. No aortic valve stenosis or regurgitation. Aortic valve sclerosis is present. TRICUSPID VALVE There is trace tricuspid valve regurgitation. PULMONARY VALVE Mild pulmonary valve regurgitation. VESSELS The inferior vena cava is normal in size. PERICARDIUM No pericardial effusion. Mick Alvarado (Electronically Signed) Final Date:27 July 2018 18:15
[2018-07-28 07:17] VITALS: O2SAT 97
--- NOTE | 2018-07-28 09:09 | P.PNCA ---
Subjective Interval history: Feels "great". No CP, dyspnea, dizziness, palpitations, PND. Medications and Allergies Active Medications: Active Medications Acetaminophen (Tylenol) 650 mg PO Q4H PRN PRN Reason: HEADACHE Last Admin: 07/27/18 11:35 Dose: 650 mg Amlodipine Besylate (Norvasc) 10 mg PO DAILY [facility] Last Admin: 07/27/18 09:24 Dose: 10 mg Aspirin (Aspirin Chew) 81 mg PO DAILY [facility] Last Admin: 07/27/18 09:20 Dose: 81 mg Atorvastatin Calcium (Lipitor) 40 mg PO HS [facility] Last Admin: 07/27/18 21:10 Dose: 40 mg Clonidine HCl (Catapres) 0.1 mg PO Q6H PRN PRN Reason: SBP>160, DBP>90 Last Admin: 07/27/18 04:43 Dose: 0.1 mg Labetalol HCl (Trandate Inj) 10 mg IV.PUSH Q6H PRN PRN Reason: SYS BP GREATER THAN 160 MMHG Losartan Potassium (Cozaar) 100 mg PO DAILY [facility] Last Admin: 07/27/18 09:20 Dose: 100 mg Metoprolol Tartrate (Lopressor) 25 mg PO BID [facility] Last Admin: 07/27/18 21:10 Dose: 25 mg Pantoprazole Sodium (Protonix) 40 mg PO DAILY [facility] Last Admin: 07/27/18 21:10 Dose: 40 mg Sodium Chloride (Ns Flush) 2 ml IV.FLUSH BID [facility] Last Admin: 07/27/18 21:10 Dose: 2 ml Sodium Chloride (Ns Flush) 2 ml IV.FLUSH PRN PRN PRN Reason: FLUSH AFTER USING IV ACCESS Temazepam (Restoril) 15 mg PO HS PRN PRN Reason: SLEEP Ticagrelor (Brilinta) 90 mg PO BID [facility] Last Admin: 07/27/18 21:15 Dose: 90 mg Allergies Allergy/AdvReac Type Severity Reaction Status Date / Time ofloxacin Allergy Severe UNKNOWN Verified 07/26/18 18:33 Home Medications Medication Instructions Recorded Confirmed Type Unable to Obtain Home Meds 07/26/18 07/26/18 History Physical Exam Vital signs: Vital Signs 07/27/18 10:00 07/27/18 11:00 07/27/18 11:04 Temperature Pulse Rate 98 H 52 L Respiratory Rate Blood Pressure Pulse Oximetry 95 07/27/18 11:41 07/27/18 12:00 07/27/18 13:00 Temperature 97.8 F Pulse Rate 52 L 48 L 48 L Respiratory Rate 18 Blood Pressure Pulse Oximetry 96 07/27/18 14:00 07/27/18 15:00 07/27/18 16:00 Temperature 98.7 F Pulse Rate 50 L 58 L 58 L Respiratory Rate 20 Blood Pressure 141/75 H Pulse Oximetry 97 07/27/18 17:00 07/27/18 18:00 07/27/18 19:00 Temperature Pulse Rate 70 60 60 Respiratory Rate Blood Pressure Pulse Oximetry 07/27/18 20:00 07/27/18 21:00 07/27/18 22:00 Temperature Pulse Rate 61 61 58 L Respiratory Rate 16 Blood Pressure 140/87 Pulse Oximetry 97 07/27/18 23:00 07/28/18 00:00 07/28/18 01:00 Temperature Pulse Rate 58 L 65 60 Respiratory Rate 16 Blood Pressure 153/90 H Pulse Oximetry 96 07/28/18 02:00 07/28/18 03:00 07/28/18 04:00 Temperature 97.2 F L Pulse Rate 60 58 L 72 Respiratory Rate 16 Blood Pressure 153/79 H Pulse Oximetry 97 07/28/18 05:00 07/28/18 06:00 07/28/18 07:25 Temperature Pulse Rate 58 L 60 Respiratory Rate Blood Pressure Pulse Oximetry 97 07/28/18 08:47 Temperature Pulse Rate Respiratory Rate Blood Pressure Pulse Oximetry 97 Intake & Output 07/27/18 07/28/18 07/28/18 18:59 06:59 18:59 Intake Total 2049 960 / 960 Output Total 800 / 800 Balance 2049 160 / 160 Weight 78.3 kg Intake: IV 2049 NS Inj 1,000 ML @ 100 mls/hr IV 800 / 800 .CONT .Q10H CLARITZA Rx#:[id number] NS Inj 1,000 ML @ 30 mls/hr IV. 1000 / 1000 SIG .Q24H CLARITZA Rx#:[id number] Oral 960 / 960 Output: Urine 800 / 800 Other: # Voids 3 Date of Last Bowel Movement 07/27/18 07/27/18 - Constitutional no acute distress - Routine Neck Exam Absent: JVD - Routine Respiratory Exam Present: CTA bilaterally - Routine Cardiovascular Exam Present: RRR, S1, S2. Absent: murmur, gallop - Routine Abdominal Exam Present: soft, normoactive bowel sounds. Absent: tenderness, organomegaly - Routine Extremities Exam Absent: cyanosis, clubbing, edema Results 07/27/18 04:46 07/27/18 04:46 Cardiac Enzymes 07/26/18 07/26/18 07/27/18 Range/Units 18:15 18:15 04:46 CK-MB (CK-2) 2.1 114.1 H (0.5-3.6) ng/mL Troponin I Less than 0.02 L (0.02-0.05) ng/mL B-Natriuretic Peptide 87 (0-100) pg/mL Coagulation 07/26/18 07/26/18 Range/Units 18:15 18:15 PT 10.4 (9.8-11.6) sec APTT 25.1 (24.3-30.1) sec B-Natriuretic Peptide 87 (0-100) pg/mL Lipids 07/27/18 Range/Units 04:46 Triglycerides 75 (42-150) mg/dL Cholesterol 87 L (120-200) mg/dL HDL Cholesterol 36.0 L (40.0-60.0) mg/dL Cholesterol/HDL Ratio 2.41 Ratio CBC 07/26/18 07/27/18 Range/Units 18:15 04:46 WBC 11.5 H 10.7 (4.0-11.0) th/mm3 RBC 4.88 4.20 L (4.50-5.90) mil/mm3 Hgb 15.4 13.6 (13.0-17.0) gm/dL Hct 45.7 38.7 L (39.0-51.0) % Plt Count 346 232 D (150-450) th/mm3 Neut # (Auto) 6.2 8.5 H (1.8-7.7) th/mm3 Lymph # (Auto) 3.1 0.9 L (1.0-4.8) th/mm3 [place] # (Auto) 1.7 H 1.2 H (0.0-0.9) th/mm3 Eos # (Auto) 0.3 0.0 (0.0-0.4) th/mm3 Baso # (Auto) 0.2 0.0 (0.0-0.2) th/mm3 Comprehensive Metabolic Panel 07/26/18 07/27/18 Range/Units 18:15 04:46 Sodium 141 141 (136-145) meq/L Potassium 3.6 4.1 (3.5-5.1) meq/L Chloride 107 106 (98-107) meq/L Carbon Dioxide 27.0 27.6 (21.0-32.0) meq/L BUN 23 H 20 H (7-18) mg/dL Creatinine 1.20 0.95 (0.60-1.30) mg/dL Calcium 8.6 8.2 L (8.5-10.1) mg/dL Intake and Output 07/27/18 07/28/18 07/28/18 22:59 06:59 14:59 Intake Total 720 / 720 240 / 240 Output Total 800 / 800 Balance -80 / -80 240 / 240 Intake: Oral 720 / 720 240 / 240 Output: Urine 800 / 800 Other: # Voids 3 Date of Last Bowel Movement 07/27/18 07/27/18 Weight 78.3 kg - Imaging and Cardiology Imaging: Impressions Chest X-Ray 07/26/18 18:08 CONCLUSION: No acute cardiopulmonary disease. Assessment and Plan - Assessment (1) ST elevation myocardial infarction (STEMI) Code(s): I21.3 - ST elevation (STEMI) myocardial infarction of unspecified site Status: Acute Plan: Stable overnight s/p inferior STEMI, PCI's of RCA and LAD. OK to discharge from cardiac standpoint. Continue beta abhijit, ARB, atorvastatin as taken at home. Continue Brilinta and aspirin. (2) Ventricular tachycardia Code(s): I47.2 - Ventricular tachycardia Status: Acute Plan: Likely was reperfusion arrhythmia. Few short runs of asymptomatic wide complex tachycardia past 24 hours, morphology of which more suggestive of aberrantly conducted SVT (starts with long-short R-R interval, initial portion of QRS similar to intrinsic QRS, preceding atrial activity present). Continue beta abhijit. LV function normal. (3) Hypertension Code(s): I10 - Essential (primary) hypertension Status: Chronic Plan: Patient reports usually normal BP's at home. Hypertensive here. Continue amlodipine, metoprolol, Losartan. Outpatient f/u with PCP. (4) Dyslipidemia Code(s): E78.5 - Hyperlipidemia, unspecified Status: Chronic Plan: Lipid profile good. Patient reports good lipid profile 3 weeks ago on 40 mg atorvastatin qd. Recommend continue same atorvastatin dosing. - Plan Code Status: full code Discussed Condition With: patient and (1) ST elevation myocardial infarction (STEMI) Qualifiers: Involved coronary artery: right coronary artery Qualified Code(s): I21.11 - ST elevation (STEMI) myocardial infarction involving right coronary artery (3) Hypertension Qualifiers: Hypertension type: essential hypertension Qualified Code(s): I10 - Essential (primary) hypertension
[2018-07-28] MEDS: amLODIPine 10 MG Tablet PO SCH (09:28)
[2018-07-28] MEDS: Metoprolol Tartrate 25 MG Tablet PO SCH (09:28)
--- NOTE | 2018-07-28 10:48 | P.PN ---
Subjective Interval history: Follow-up ST elevation VT/ventricular tachycardia July 28, 2018-patient seen and examined shortness of breath. No dizziness, shortness of breath or chest pain. Physical Exam Vital signs: Vital Signs 07/27/18 11:00 07/27/18 11:04 07/27/18 11:41 Temperature 97.8 F Pulse Rate 52 L 52 L Respiratory Rate 18 Blood Pressure Pulse Oximetry 95 96 07/27/18 12:00 07/27/18 13:00 07/27/18 14:00 Temperature Pulse Rate 48 L 48 L 50 L Respiratory Rate Blood Pressure Pulse Oximetry 07/27/18 15:00 07/27/18 16:00 07/27/18 17:00 Temperature 98.7 F Pulse Rate 58 L 58 L 70 Respiratory Rate 20 Blood Pressure 141/75 H Pulse Oximetry 97 07/27/18 18:00 07/27/18 19:00 07/27/18 20:00 Temperature Pulse Rate 60 60 61 Respiratory Rate 16 Blood Pressure 140/87 Pulse Oximetry 97 07/27/18 21:00 07/27/18 22:00 07/27/18 23:00 Temperature Pulse Rate 61 58 L 58 L Respiratory Rate Blood Pressure Pulse Oximetry 07/28/18 00:00 07/28/18 01:00 07/28/18 02:00 Temperature Pulse Rate 65 60 60 Respiratory Rate 16 Blood Pressure 153/90 H Pulse Oximetry 96 07/28/18 03:00 07/28/18 04:00 07/28/18 05:00 Temperature 97.2 F L Pulse Rate 58 L 72 58 L Respiratory Rate 16 Blood Pressure 153/79 H Pulse Oximetry 97 07/28/18 06:00 07/28/18 07:25 07/28/18 08:47 Temperature Pulse Rate 60 Respiratory Rate Blood Pressure Pulse Oximetry 97 97 Intake & Output 07/27/18 07/28/18 07/28/18 18:59 06:59 18:59 Intake Total 2049 960 / 960 Output Total 800 / 800 Balance 2049 160 / 160 Weight 78.3 kg Intake: IV 2049 NS Inj 1,000 ML @ 100 mls/hr IV 800 / 800 .CONT .Q10H CLARITZA Rx#:[id number] NS Inj 1,000 ML @ 30 mls/hr IV. 1000 / 1000 SIG .Q24H CLARITZA Rx#:[id number] Oral 960 / 960 Output: Urine 800 / 800 Other: # Voids 3 Date of Last Bowel Movement 07/27/18 07/27/18 Narrative: GENERAL: NAD SKIN: Warm and dry. HEAD: Atraumatic. Normocephalic. EYES: Pupils equal and round. No scleral icterus. No injection or drainage. ENT: No nasal bleeding or discharge. Mucous membranes pink and moist. NECK: Trachea midline. No JVD. CARDIOVASCULAR: Regular rate and rhythm. RESPIRATORY: No accessory muscle use. Clear to auscultation. Breath sounds equal bilaterally. GASTROINTESTINAL: Abdomen soft, non-tender, nondistended. Hepatic and splenic margins not palpable. MUSCULOSKELETAL: Extremities without clubbing, cyanosis, or edema. No obvious deformities. NEUROLOGICAL: Awake and alert. No obvious cranial nerve deficits. Motor grossly within normal limits. Five out of 5 muscle strength in the arms and legs. Normal speech. PSYCHIATRIC: Appropriate mood and affect; insight and judgment normal. Results - Labs CBC & Chem 7: 07/27/18 04:46 07/27/18 04:46 - Procedures none Assessment and Plan - Plan 72-year-old man with ST elevation VT Status post emergent left heart catheterization with PCI of RCA and LAD Continue beta-abhijit, ARB, Brilinta and aspirin as well as statin Management per cardiology 2D echo with EF of 55-60% Hypertension Currently on beta-abhijit,ARB, Norvasc Ventricular Tachycardia Continue with BB Hyperlipidemia On Lipitor Discharge patient to home Condition on discharge: Improved Regular Diet as tolerated Ad Shahida activity Rx written: see EMR Follow-up with primary care physician in 1 week cardiology in 1-2 weeks
[2018-07-28 20:52] VITALS: BP 152/77; RESP 18; TEMP 98.2
[2018-07-28 20:55] VITALS: PULSE 61
== END 2018-07-28 12:01 | disposition home or self-care (01) ==
LOC: PHED 17:58 → PHEDH 18:15 → HCIS 19:00
PROVIDERS: ADMIT Hospitalist; ATTEND Hospitalist